=== PATIENT | male | born 1965 | race Caucasian/White ===

== ENCOUNTER → 2017-09-04 | Outpatient (CLI) | payer OTHER | LOC: M RAD 11:13 | DX: M50.30 Other cervical disc degeneration, unspecified cervical region (principal); M54.6 Pain in thoracic spine; M43.22 Fusion of spine, cervical region | CPT/HCPCS: 72052 ==

== ENCOUNTER → 2017-10-29 | Outpatient (CLI) | payer OTHER ==
[~2017-10-29] MED LIST: PROHANCE 279.3MG/ML 15ML VIAL (A9576) As Ordered; PROHANCE 279.3MG/ML 5ML VIAL (A9576) As Ordered
== END ==
LOC: M RAD 15:24
DX: M50.30 Other cervical disc degeneration, unspecified cervical region (principal)
CPT/HCPCS: A9576

== ENCOUNTER → 2020-04-27 | Outpatient (CLI) | payer OTHER | LOC: M LABSMTC 10:53 | PROVIDERS: ATTEND Orthopaedic Surgery | DX: Z20.828 Contact with and (suspected) exposure to other viral communicable diseases (principal) ==

== ENCOUNTER → 2021-06-04 | Outpatient (CLI) | payer OTHER ==
--- NOTE | 2021-06-06 14:38 | SLEEPCENT ---
DATE: 06/04/2021 PROCEDURE: Nocturnal polysomnography. ORDERED BY: Zoe Christina at the [facility]. Nocturnal polysomnography was performed for evaluation of sleep physiology. 8 hours and 21 minutes of data were reviewed. There were 429 minutes of sleep identified. Sleep latency was normal at 11.5 minutes. REM latency was normal at 86 minutes. Sleep architecture was good with 5 REM cycles. Some fragmentation was seen early and late in the study. Overall sleep efficiency 86.4%. The electrocardiogram showed a sinus rhythm with an average heart rate of 60 beats per minute. Rate ranged 50 to 80. EEG showed normal waveforms for wake and sleep. There were 116 respiratory events identified of 10 seconds in duration or greater for an apnea-hypopnea index of 16.2. The events were obstructive, not exclusive to sleep stage nor position. Arousals from respiratory events occurred 5.9 times per hour, and oxygen desaturations were seen into the 80s. With some limb activity noted in the EMG leads, limb movement arousal index was within normal limits at 2.5. IMPRESSION: Obstructive sleep apnea syndrome (G47.33). Apnea-hypopnea index 16.2. RECOMMENDATIONS: The patient should be encouraged to return to [facility] for pressure [facility]. In the interim, alcohol and sedative avoidance should be practiced and caution exercised during the operation of motor vehicles.
== END ==
LOC: M SLEEP 20:00
PROVIDERS: ATTEND Physician Assistant Medical
DX: G47.33 Obstructive sleep apnea (adult) (pediatric) (principal)

== ENCOUNTER → 2022-03-27 | Outpatient (REF) | LOC: M RAD 09:02 | PROVIDERS: ATTEND Physician Assistant Medical | DX: D16.7 Benign neoplasm of ribs, sternum and clavicle (principal) ==

== ENCOUNTER → 2022-06-04 | Outpatient (CLI) | payer OTHER ==
[~2022-06-04] MED LIST changes: +FLOM0.4C39 PO; +LISI10TA22 PO; -PROHANCE 279.3MG/ML 15ML VIAL (A9576) As Ordered; -PROHANCE 279.3MG/ML 5ML VIAL (A9576) As Ordered
== END ==
LOC: M LABSMTC 11:17
PROVIDERS: ATTEND Anesthesiology
DX: Z01.812 Encounter for preprocedural laboratory examination (principal); Z11.52 Encounter for screening for COVID-19

== ENCOUNTER 2022-06-09 08:28 | Day surgery (SDC) | payer OTHER ==
[~2022-06-09] VITALS: Ht 170.2 cm; Wt 87.5 kg
[~2022-06-09 08:28] MED LIST changes: +NS 1,000 ML IV ONE
[2022-06-09] MEDS ORDERED: propofoL 200 MG/20 ML VIAL As Ordered ONE (09:22)
[2022-06-09] MEDS ORDERED: LIDOCAINE 2% 100MG/5ML SDV (FOR ANES.) As Ordered ONE (09:22)
[2022-06-09 10:00] VITALS: BP 127/57
== END 2022-06-09 10:11 | disposition home or self-care (01) ==
LOC: M OPP 08:28
PROVIDERS: ATTEND Internal Medicine Gastroenterology
DX: Z12.11 Encounter for screening for malignant neoplasm of colon (principal); Z80.0 Family history of malignant neoplasm of digestive organs; K64.8 Other hemorrhoids; K57.30 Diverticulosis of large intestine without perforation or abscess without bleeding; Z79.899 Other long term (current) drug therapy; Z91.013 Allergy to seafood; Z91.030 Bee allergy status; Z91.038 Other insect allergy status; G47.30 Sleep apnea, unspecified; I10 Essential (primary) hypertension; Z80.1 Family history of malignant neoplasm of trachea, bronchus and lung; Z80.3 Family history of malignant neoplasm of breast

== ENCOUNTER → 2023-06-30 | Outpatient (CLI) | payer OTHER ==
[~2023-06-30] MED LIST changes: +ISOVUE-300 61% 100ML VIAL As Ordered ONE; +LIDOCAINE 1% MDV 20ML VIAL As Ordered ONE; -NS 1,000 ML IV ONE; +methylPREDNISolone SUSP 40MG/ML 1ML VIAL (DEPO MEDROL) As Ordered ONE
== END ==
LOC: M LAB 15:19
PROVIDERS: ATTEND Physician Assistant
DX: M47.26 Other spondylosis with radiculopathy, lumbar region (principal)
CPT/HCPCS: 20610; 77002; J1030; Q9967

== ENCOUNTER → 2023-10-23 | Outpatient (REF) ==
[~2023-10-23] MED LIST changes: -ISOVUE-300 61% 100ML VIAL As Ordered ONE; -LIDOCAINE 1% MDV 20ML VIAL As Ordered ONE; -methylPREDNISolone SUSP 40MG/ML 1ML VIAL (DEPO MEDROL) As Ordered ONE
[2023-10-23 11:11] LABS: COLLAGEN EPINEPHRINE 116 SECONDS (74-162)
== END ==
LOC: M CAHLAB 10:15
PROVIDERS: ATTEND Physician Assistant
DX: Z00.00 Encounter for general adult medical examination without abnormal findings (principal)

== ENCOUNTER → 2024-09-12 | Outpatient (CLI) | payer OTHER | LOC: M RAD 10:59 | PROVIDERS: ATTEND Orthopaedic Surgery | DX: Z96.641 Presence of right artificial hip joint (principal); R09.89 Other specified symptoms and signs involving the circulatory and respiratory systems ==